=== PATIENT | female | born 1980 | race Caucasian/White ===

== ENCOUNTER 2019-03-07 05:31 | Emergency (ER) | payer MEDICAID ==
[~2019-03-07] VITALS: Ht 144.8 cm; Wt 77.1 kg
[2019-03-07 05:36] VITALS: BP 138/88
--- NOTE | 2019-03-07 05:40 | NUR ---
PT BIB SELF C/O HEADACHE X3 DAYS W/ NAUSEA. PT STATES SHE HAS TAKEN TYLENOL AND IBUPROFEN AT HOME W/O RELIEF; -NAUSEA AT THIS TIME. PT STATES CONSTANT 9/10 PAIN TO FRONTAL AND POSTERIOR LOBES; DENIES VISION CHANGES. PT SPEAKING IN CLEAR AND COMPLETE SENTENCES, ACTING APPROPRIATLY. BREATHING EQUAL AND UNLABORED. STRONG HAND CERTIFIED NURSING ASSISTANT BL. PMH: PRE-DM
--- NOTE | 2019-03-07 05:45 | NUR ---
DR. WHITMAN AT BEDSIDE.
[2019-03-07] MEDS ORDERED: KETOROLAC 30 MG/ML VIAL IM ONE (05:50)
--- NOTE | 2019-03-07 06:25 | NUR ---
PT SLEEPING AROUSABLE TO VOICE. PT STATE PAIN HAS DECREASED TO 5/10, AND FEELS BETTER. ERMD AWARE.
--- NOTE | 2019-03-07 06:31 | NUR ---
Patient discharged with v/s stable. Patient states she feels much better and pain has decreased, patient acting appropriatly. Written and verbal after care instructions given and explained. Patient alert, oriented and verbalized understanding of instructions. Ambulatory with steady gait. All questions addressed prior to discharge. ID band removed. Patient advised to follow up with PMD. Rx of Naproxen given. Patient educated on indication of medication including possible reaction and side effects. Opportunity to ask questions provided and answered.
[2019-03-07 06:32] VITALS: BP 126/63
== END 2019-03-07 06:31 | disposition home or self-care (01) ==
LOC: MED 05:31
DX: R51 Headache (principal); R11.0 Nausea
CPT/HCPCS: 96372; 99283; J1885